=== PATIENT | male | born 1945 | race Caucasian/White ===

== ENCOUNTER 2023-04-13 09:22 | Outpatient (CLI) | payer MEDICARE ==
[~2023-04-13 09:22] MED LIST: Magnevist 469MG/ML 20 ML VIAL ONE
[2023-04-13] MEDS ORDERED: Glucagon 1 MG/ML KIT ONE (09:50)
== END 2023-04-13 09:23 | disposition home or self-care (01) ==
LOC: MRI 09:22
PROVIDERS: ATTEND Internal Medicine Gastroenterology
DX: Z87.19 Personal history of other diseases of the digestive system (principal); Z86.010 Personal history of colon polyps; K80.20 Calculus of gallbladder without cholecystitis without obstruction
CPT/HCPCS: 74183; J1611; A9579